=== PATIENT | male | born 2000 | race Caucasian/White ===

== ENCOUNTER 2023-05-19 12:48 | Outpatient (AMB) | payer OTHER, SELFPAY ==
--- NOTE | 2023-05-19 12:59 | MHC.OFFVIS ---
Intake Intake Visit Reasons: lower back pain Director Of Acquisition Marketing Required: No Assessment & Plan Assessment & Plan (1) Lumbar degenerative disc disease: Code(s): M51.36 - Other intervertebral disc degeneration, lumbar region Plan Dear colleague Thank you for referring Leroy Malave to the office today with a chief complaint of back pain. 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 Since then he is bothered by these symptoms during strenuous activity such as working at a [employer] form, playing soccer and lifting weights. The pain is located in his lumbar region and radiates to his posterior thighs, with the right side more affected than the left side. Physical therapy was ineffective. Rest improves the symptoms. He did stop that lifting and squats. PMH: Noncontributory Medications: None Allergies: None Social history: Nonsmoker Physical Exam: Well-developed male. Straight leg raise produces pain in his back. Otherwise no neurological deficits for motor sensation or reflexes. Flexion is more painful than extension. Radiological Studies: MRI of the lumbar spine done at [facility] shows mild degenerative disc disease L4-5 and L5-S1 with a small disc bulge L5-S1 towards the left side. In addition there is hyperintensity of the bilateral L5 pedicles. Impression/Plan: The patient's suffer from low back pain. The MRI shows signs of excessive stress on the bilateral L5 pedicles in addition to mild degenerative disc disease with the L5-S1 disc is most affected. No surgery is required at this time. It is obvious that he needs to be careful with his back. Unfortunately, I have no other recommendations to treat this. Thank you for allowing me to participate in your patients care. total time spent was 45 minutes in counseling ,coordination of plan, personal review of imaging. Shin Kong MD, PhD Spine Fellowship Trained Neurosurgeon Director, [facility] Coding Level of Care Code New Pt Level 4 (29886) Diagnoses Lumbar degenerative disc disease M51.36
== END 2023-05-19 13:22 | disposition home or self-care (01) ==
PROVIDERS: Referring Provider Family Medicine; Visit Provider Neurological Surgery
DX: M51.36 Other intervertebral disc degeneration, lumbar region (principal)
CPT/HCPCS: 99204

== ENCOUNTER → 2023-05-19 12:48 | Outpatient (BNVA) | payer OTHER, SELFPAY | PROVIDERS: Visit Provider Neurological Surgery ==